=== PATIENT | female | born 1930 | race Caucasian/White ===

== ENCOUNTER 2016-09-14 09:57 | Outpatient (CLI) | payer MEDICARE, BC ==
[2016-09-14 10:35] LABS: ALT (SGPT) 16 U/L (0-55); AST (SGOT) 16 U/L (5-34); Alkaline Phosphatase 119 U/L (40-150); Anion Gap 10 mmol/L (10-20); BUN (Urea Nitrogen) 24 mg/dL (9.8-20.1); Bilirubin, Total 0.2 mg/dL (0.2-1.2); Calc. Creatinine Clearance 0 mL/min (70-130); Calcium 9.4 mg/dL (7.8-10.44); Carbon Dioxide 30 mmol/L (23-31); Chloride 102 mmol/L (98-107); Estimated GFR-MDRD 46; Globulin 2.5 g/dL (2.4-3.5); Protein, Total 6.8 g/dL (5.8-8.1)
[2016-09-14 11:27] LABS: #Eosinphils 0.2 thou/uL (0.0-0.7); #Lymphocytes 1.3 thou/uL (1.20-3.40); #Monocytes 0.5 thou/uL (0.11-0.59); #Neutrophils 5.8 thou/uL (1.40-6.50); %Basophils 0.6 % (0.0-1.0); %Monocytes 6.6 % (0.0-10.0); Hematocrit 39.9 % (36.0-47.0); Mean Platelet Volume 6.8 fL (7.4-10.4); Red Blood Cell (RBC) Count 4.08 mill/uL (4.20-5.40); White Blood Cell (WBC) Count 7.8 thou/uL (4.8-10.8)
== END 2016-09-14 09:58 | disposition home or self-care (01) ==
LOC: BURLAB 09:57 → EDBD 09:57 → BURLAB 09:58
PROVIDERS: ATTEND Student in an Organized Health Care Education/Training Program
DX: D32.9 Benign neoplasm of meninges, unspecified (principal); G40.119 Localization-related (focal) (partial) symptomatic epilepsy and epileptic syndromes with simple partial seizures, intractable, without status epilepticus; G40.109 Localization-related (focal) (partial) symptomatic epilepsy and epileptic syndromes with simple partial seizures, not intractable, without status epilepticus
CPT/HCPCS: 36415; 80053; 80183; 80201; 85025

== ENCOUNTER 2016-12-08 09:05 | Outpatient (CLI) | payer MEDICARE, BC ==
[2016-12-08 11:01] LABS: ALT (SGPT) 16 U/L (0-55); AST (SGOT) 19 U/L (5-34); Albumin 4.2 g/dL (3.4-4.8); Alkaline Phosphatase 102 U/L (40-150); Anion Gap 13 mmol/L (10-20); BUN (Urea Nitrogen) 24 mg/dL (9.8-20.1); Bilirubin, Total 0.4 mg/dL (0.2-1.2); Calc. Creatinine Clearance 0 mL/min (70-130); Calcium 9.2 mg/dL (7.8-10.44); Carbon Dioxide 27 mmol/L (23-31); Chloride 99 mmol/L (98-107); Estimated GFR-MDRD 48; Globulin 2.7 g/dL (2.4-3.5); Glucose 77 mg/dL (83-110); Potassium 4.4 mmol/L (3.5-5.1); Protein, Total 6.9 g/dL (5.8-8.1); Sodium 135 mmol/L (136-145)
[2016-12-08 11:35] LABS: #Eosinphils 0.2 thou/uL (0.0-0.7); #Lymphocytes 1.2 thou/uL (1.20-3.40); #Monocytes 0.5 thou/uL (0.11-0.59); #Neutrophils 4.8 thou/uL (1.40-6.50); %Basophils 0.6 % (0.0-1.0); %Eosinophils 2.6 % (0.0-10.0); %Lymphocytes 17.4 % (21.0-51.0); %Monocytes 7.4 % (0.0-10.0); Hemoglobin 13.7 g/dL (12.0-16.0); Mean Corpuscular HGB CONC 33.8 g/dL (32.0-36.0); Mean Corpuscular Hemoglobin 33.3 pg (27.0-31.0); Mean Corpuscular Volume 98.6 fl (81.0-99.0); Mean Platelet Volume 6.1 fL (7.4-10.4); Platelet Count 278 thou/uL (130-400); RBC Distribution Width 11.2 % (11.5-14.5); Red Blood Cell (RBC) Count 4.13 mill/uL (4.20-5.40); White Blood Cell (WBC) Count 6.7 thou/uL (4.8-10.8)
[2016-12-08 17:21] LABS: CRP (Inflammatory) Less than 0.50 mg/dL (= or < 0.5)
[2016-12-08 22:00] LABS: RPR NONREACTIVE (NONREACTIVE)
[2016-12-08 22:57] LABS: Rheumatoid Factor Negative (Negative)
== END 2016-12-08 09:06 | disposition home or self-care (01) ==
LOC: HPCALD 09:05
PROVIDERS: ATTEND Family Medicine
DX: I77.6 Arteritis, unspecified (principal)
CPT/HCPCS: 36415; 80053; 82607; 84443; 85025; 85652; 86038; 86140; 86430; 86592

== ENCOUNTER 2018-11-11 16:36 | Outpatient (CLI) | payer MEDICARE, BC ==
--- NOTE | 2018-11-11 17:40 | RAD ---
LEFT ANKLE THREE VIEWS: 11/11/18 No fracture or acute bony change was seen. Some mild soft tissue swelling is present. The joint space appears normal. The articular surfaces are smooth. IMPRESSION: No acute finding. POS: HOME
== END 2018-11-11 16:37 | disposition home or self-care (01) ==
LOC: BURRAD 16:36
PROVIDERS: ATTEND Family Medicine
DX: S93.492A Sprain of other ligament of left ankle, initial encounter (principal)

== ENCOUNTER 2019-03-24 00:43 | Emergency (ER) | payer MEDICARE, BC ==
[2019-03-24] MEDS ORDERED: Furosemide 40 MG/4 ML VIAL ONE (01:14)
[2019-03-24] MEDS ORDERED: Azithromycin 500 MG VIAL ONE (01:14)
[2019-03-24] MEDS ORDERED: Piperacillin/Tazobactam 4.5 GM VIAL ONE (01:14)
[2019-03-24] MEDS ORDERED: methylPREDNISolone Sod Succ/PF 125 MG/2 ML VIAL ONE (01:14)
[2019-03-24 01:18] LABS: #Basophils 0.2 thou/uL (0.0-0.2); #Eosinphils 0.2 thou/uL (0.0-0.7); #Lymphocytes 1.4 thou/uL (1.20-3.40); #Monocytes 0.9 thou/uL (0.11-0.59); #Neutrophils 11.6 thou/uL (1.40-6.50); %Basophils 1.6 % (0.0-1.0); %Eosinophils 1.5 % (0.0-10.0); %Lymphocytes 9.7 % (21.0-51.0); %Monocytes 6.1 % (0.0-10.0); %Neutrophils 81.2 % (42.0-75.0); Hemoglobin 11.3 g/dL (12.0-16.0); Mean Corpuscular HGB CONC 33.3 g/dL (32.0-36.0); Mean Corpuscular Hemoglobin 31.9 pg (27.0-31.0); Mean Corpuscular Volume 95.8 fL (78.0-98.0); Mean Platelet Volume 6.2 fL (7.4-10.4); Platelet Count 366 thou/uL (130-400); Red Blood Cell (RBC) Count 3.55 mill/uL (4.20-5.40); White Blood Cell (WBC) Count 14.3 thou/uL (4.8-10.8)
[2019-03-24] MEDS ORDERED: Sodium Chloride 0.9% 100 ML ONE (01:21)
[2019-03-24 01:27] LABS: ALT (SGPT) 29 U/L (8-55); AST (SGOT) 23 U/L (5-34); Albumin 3.8 g/dL (3.4-4.8); Alkaline Phosphatase 116 U/L (40-150); Anion Gap 16 mmol/L (10-20); BUN (Urea Nitrogen) 14 mg/dL (9.8-20.1); Bilirubin, Total 0.2 mg/dL (0.2-1.2); Calc. Creatinine Clearance 0 mL/min (70-130); Calcium 9.6 mg/dL (7.8-10.44); Chloride 100 mmol/L (98-107); Estimated GFR-MDRD 66; Globulin 3.6 g/dL (2.4-3.5); Glucose 161 mg/dL (83-110); Potassium 4.4 mmol/L (3.5-5.1); Protein, Total 7.4 g/dL (6.0-8.3); Sodium 140 mmol/L (136-145)
[2019-03-24 01:34] LABS: Carbon Dioxide 28 mmol/L (23-31)
[2019-03-24 01:47] LABS: CKMB 2.6 ng/mL (0-6.6)
[2019-03-24] MEDS ORDERED: DOPamine 400 MG/D5W 250 ML 0 ML ONE (01:54)
--- NOTE | 2019-03-24 08:18 | RAD ---
PORTABLE CHEST: DATE: 03/24/2019. FINDINGS: An AP portable film at 0103 is compared with a 02/08/2018 study. The heart size is comparable. There are diffuse interstitial markings throughout the lungs. Looking at prior films, this seems chronic. There is evidently a chronic fibrotic component. The prominenc e of the markings is a little more today than on the previous study, however. There is the possibil ity that there is some mild vascular congestion on top of the chronic fibrotic change. There are no effusions. IMPRESSION: Prominent interstitial lung markings. 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 Question of superimposed congestion as well. POS: HOME
== END 2019-03-24 02:35 | disposition short-term general hospital (02) ==
LOC: BURERS 00:43
DX: I50.1 Left ventricular failure, unspecified (principal); R79.89 Other specified abnormal findings of blood chemistry; E78.5 Hyperlipidemia, unspecified; J44.9 Chronic obstructive pulmonary disease, unspecified; F41.9 Anxiety disorder, unspecified; F32.9 Major depressive disorder, single episode, unspecified; F17.210 Nicotine dependence, cigarettes, uncomplicated; Z79.899 Other long term (current) drug therapy; Z79.51 Long term (current) use of inhaled steroids
CPT/HCPCS: 71045; 80053; 82553; 83605; 83880; 84484; 85025; 87040; 93005; 94760; 96365; 96367; 96368; 96375; J0456; J1265; J1940; J2543; J2930; J3490; J7620

== ENCOUNTER 2020-02-19 07:51 | Outpatient (CLI) | payer MEDICARE, BC ==
[2020-02-19] MEDS ORDERED: Iopamidol 370 76% 100 ML VIAL ONE (13:43)
--- NOTE | 2020-02-19 14:26 | CT ---
CT OF THE BRAIN: DATE: 02/19/2020. FINDINGS: Computed tomography of the brain was done pre- and post-IV contrast due to evaluation of a known tumo r. Comparison is made with a prior study of 09/29/2018. There has been substantial change in the interval. The right posterior parietal extraaxial mass has greatly enlarged in size in the interval. The intracranial component is at least 6 cm long now, but in addition, it has eroded through the calvarium completely and now there is a very large extraaxial component. Bladder seems to be in the order of 10 cm in size looking at the smutter film. In addition , there is a new extraaxial mass in the left posterior parietal region that measures approximately 3 cm in size. This abuts the falx cerebri. The masses enhancement with the addition of IV contrast as is expected. The degree of calvarial destruction has increased markedly in this interval. There is no hydrocephalus. Profound deep white matter lucency is present bilaterally as before, wors e on the right than the left. It has worsened over the interval. While much of this is chronic isch emic change, I cannot rule out some parts of it being edema, though there is no effacement of sulci o r evidence of ventricular obstruction. No bleeding was seen. IMPRESSION: 1. 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 2. 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 3. Substantial chronic ischemic change as before. See additional comments above. 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 CODE T POS: HOME
== END 2020-02-19 07:52 | disposition home or self-care (01) ==
LOC: BURCT 07:51
PROVIDERS: ATTEND Family Medicine
DX: Z01.818 Encounter for other preprocedural examination (principal); D32.9 Benign neoplasm of meninges, unspecified; R22.0 Localized swelling, mass and lump, head; I67.82 Cerebral ischemia
CPT/HCPCS: 36415; 70470; 82565; Q9967